=== PATIENT | female | born 1940 | race Caucasian/White ===

== ENCOUNTER → 2017-06-22 | Outpatient (REF) | payer OTHER, MEDICAID ==
[~2017-06-22] MED LIST: /ROPI5TA; /WARF25TA; ACET65TA; GLUC500T; NIAC500C; OXYB10TA; PERC5TAB8; PROZ20CA; VASO10TA; ZOCO20TA
[2017-06-23 14:09] LABS: PERCENT SATURATION 19.4 % (13.2-45.0)
== END ==
LOC: M LAB REF 13:41
PROVIDERS: ATTEND Internal Medicine
DX: D64.9 Anemia, unspecified (principal)

== ENCOUNTER → 2017-07-27 | Outpatient (CLI) | payer OTHER, MEDICAID | LOC: M RAD 11:16 | DX: Z12.31 Encounter for screening mammogram for malignant neoplasm of breast (principal) | CPT/HCPCS: 77067 ==

== ENCOUNTER → 2018-08-15 | Outpatient (CLI) | payer MEDICARE, MEDICAID ==
--- NOTE | 2018-08-15 13:43 | REPMRS ---
Patient History The patient states she has not had a clinical breast exam in over a year. Family history of endometrial cancer in sister. Benign stereotactic core biopsy of the right breast, August 09, 2011. 3D TOMOSYNTHESIS WAS PERFORMED. Digital Mammo Screening Bilat: August 15, 2018 - Exam #: [id number] Bilateral CC and MLO view(s) were taken. Technologist: Alicia Stinson, Technologist Prior study comparison: July 27, 2017, bilateral digital mammo screening bilat performed at [facility]. July 05, 2016, bilateral digital mammo screening bilat performed at [facility]. FINDINGS: There are scattered fibroglandular densities. There has been no change in the appearance of the mammogram from the prior studies. There is a mild amount of residual fibroglandular tissue which is fairly symmetric. There is no interval development of dominant mass, architectural distortion, or clustered microcalcification suggestive of malignancy. Assessment: BI-RADS/ACR category 1 mammogram. Negative Mammogram. Recommendation Routine screening mammogram in 1 year (for women over age 40). This mammogram was interpreted with the aid of an FDA-approved computer-aided dectection system. Electronically Signed By: Zeeshan Deleon MD 08/15/18 [id number]
== END ==
LOC: M RAD 13:01
PROVIDERS: ATTEND Internal Medicine
DX: Z12.31 Encounter for screening mammogram for malignant neoplasm of breast (principal); Z80.49 Family history of malignant neoplasm of other genital organs

== ENCOUNTER 2018-10-20 21:51 | Emergency (ER) | payer MEDICARE, MEDICAID ==
[~2018-10-20] VITALS: Ht 152.4 cm; Wt 81.7 kg
[~2018-10-20 21:51] MED LIST changes: -/ROPI5TA; -/WARF25TA; +COUM1TAB18; +REQU1TAB15
[2018-10-20] MEDS ORDERED: TIMO0.5S29 (22:02)
[2018-10-20] MEDS ORDERED: METF-839 (22:02)
[2018-10-20] MEDS ORDERED: TRAV04OPD (22:02)
[2018-10-20] MEDS ORDERED: ENAL10TA2 (22:02)
[2018-10-20] MEDS ORDERED: FLUO40CA (22:02)
[2018-10-20] MEDS ORDERED: JANU100T (22:02)
[2018-10-20] MEDS ORDERED: OXYB10TA (22:02)
[2018-10-20] MEDS ORDERED: ATOR40TA75 (22:02)
[2018-10-20] MEDS ORDERED: OMEP20CA3 (22:02)
--- NOTE | 2018-10-20 23:46 | REPVR ---
EXAM: CT Head Without Contrast EXAM DATE/TIME: 10/20/2018 11:15 PM CLINICAL HISTORY: 78 years old, female; Injury or trauma; Fall; Initial encounter; Abrasion; Additional info: Fell TECHNIQUE: Imaging protocol: Axial computed tomography images of the head/brain without contrast. Radiation optimization: All CT scans at this facility use at least one of these dose optimization techniques: automated exposure control; mA and/or kV adjustment per patient size (includes targeted exams where dose is matched to clinical indication); or iterative reconstruction. COMPARISON: No relevant prior studies available. FINDINGS: Brain: There is mild parenchymal volume loss. White matter changes are demonstrated in the subcortical, centrum semiovale and periventricular white matter consistent with small vessel white matter angiopathic gliosis. Ventricles: The degree of ventricular dilatation is normal for age. No pathologic enlargement demonstrated. Bones/joints: Left nasal fracture. There is hyperostosis frontalis interna. Sinuses: Visualized sinuses are unremarkable. No acute sinusitis. Mastoid air cells: Visualized mastoid air cells are unremarkable. No mastoid effusion. Soft tissues: Right periorbital hematoma/contusion. Vasculature: Heavily calcified V4 segment right vertebral artery. Calcified intracranial carotid arteries. IMPRESSION: 1. Left nasal fracture. 2. Right periorbital hematoma/contusion. 3. There is mild parenchymal volume loss. White matter changes are demonstrated in the subcortical, centrum semiovale and periventricular white matter consistent with small vessel white matter angiopathic gliosis. Electronically signed by: Khurram Saenz On 10/20/2018 23:46:21 PM
--- NOTE | 2018-10-20 23:49 | REPVR ---
EXAM: CT Maxillofacial Without Contrast EXAM DATE/TIME: 10/20/2018 11:15 PM CLINICAL HISTORY: 78 years old, female; Injury or trauma; Fall; Initial encounter; Bleeding/hemorrhage; Orbit/periorbital; Right; Additional info: Fell TECHNIQUE: Imaging protocol: Axial computed tomography images of the face without intravenous contrast. Coronal and sagittal reformatted images were created and reviewed. Radiation optimization: All CT scans at this facility use at least one of these dose optimization techniques: automated exposure control; mA and/or kV adjustment per patient size (includes targeted exams where dose is matched to clinical indication); or iterative reconstruction. COMPARISON: No relevant prior studies available. FINDINGS: Orbits: No acute intraorbital abnormality. Globes are unremarkable. Sinuses: Air-fluid level in the right maxillary sinus may indicate acute sinusitis. Bones/joints: Possible minimally displaced left nasal fracture. Soft tissues: Right periorbital soft tissue contusion. IMPRESSION: 1. Right periorbital soft tissue contusion. No skull fracture. 2. Possible minimally displaced left nasal fracture. Electronically signed by: Khurram Saenz On 10/20/2018 23:48:54 PM
[2018-10-21 00:15] VITALS: BP 162/80
== END 2018-10-21 00:18 | disposition home or self-care (01) ==
LOC: M ED 21:51
DX: S02.2XXA Fracture of nasal bones, initial encounter for closed fracture (principal); S00.11XA Contusion of right eyelid and periocular area, initial encounter; S00.531A Contusion of lip, initial encounter; W19.XXXA Unspecified fall, initial encounter; Y92.099 Unspecified place in other non-institutional residence as the place of occurrence of the external cause; Y93.89 Activity, other specified; Y99.9 Unspecified external cause status; I10 Essential (primary) hypertension; E78.5 Hyperlipidemia, unspecified; E11.9 Type 2 diabetes mellitus without complications; K21.9 Gastro-esophageal reflux disease without esophagitis; N32.81 Overactive bladder; Z79.84 Long term (current) use of oral hypoglycemic drugs; Z79.899 Other long term (current) drug therapy

== ENCOUNTER → 2019-06-27 | Outpatient (REF) | payer MEDICARE, MEDICAID ==
[~2019-06-27] MED LIST changes: +ATOR40TA75; +ENAL10TA2; +FLUO40CA; +JANU100T; +METF-839; +OMEP-172; +OXYB10TA2; +TIMO0.5S29; +TRAV04OPD
[2019-06-28 13:33] LABS: FOLATE 11.7 NG/ML
== END ==
LOC: M LAB REF 12:35
PROVIDERS: ATTEND Internal Medicine
DX: R41.3 Other amnesia (principal)

== ENCOUNTER → 2019-08-30 | Outpatient (CLI) | payer MEDICAID, MEDICARE ==
[~2019-08-30] MED LIST changes: -OMEP-172; +OMEP1CAP73; -OXYB10TA2; +OXYB10TA23
--- NOTE | 2019-08-30 15:34 | REPMRS ---
Patient History Family history of endometrial cancer in sister. Benign stereotactic core biopsy of the right breast, August 09, 2011. Digital Woman Screen Mammo: August 30, 2019 - Exam #: [id number] Bilateral CC and MLO view(s) were taken. Technologist: Liz Holland, Technologist Prior study comparison: August 15, 2018, bilateral digital mammo screening bilat, performed at [facility]. July 27, 2017, bilateral digital mammo screening bilat, performed at [facility]. July 05, 2016, bilateral digital mammo screening bilat, performed at [facility]. FINDINGS: There are scattered fibroglandular densities. A needle biopsy marker clip is again noted projecting in the upper outer quadrant of the right breast. Vascular calcification is again observed. There has been no change in the appearance of the mammogram from the prior studies. There is a mild amount of scattered fibroglandular density which is fairly symmetric. There is no interval development of dominant mass, architectural distortion, or grouped microcalcification suggestive of malignancy. 3-D tomosynthesis shows no additional findings. Assessment: BI-RADS/ACR category 2 mammogram. Benign Findings. Recommendation Routine screening mammogram of both breasts in 1 year (for women over age 40). This patient's Lifetime Breast Cancer Risk is estimated at 1.7 %. This mammogram was interpreted with the aid of an FDA-approved computer-aided dectection system. Electronically Signed By: Paulo Hoffman MD 08/30/19 [id number]
== END ==
LOC: M WHC 13:56
PROVIDERS: ATTEND Internal Medicine
DX: Z12.31 Encounter for screening mammogram for malignant neoplasm of breast (principal)

== ENCOUNTER → 2021-08-14 | Outpatient (REF) | payer OTHER, MEDICAID, MEDICARE ==
[~2021-08-14] MED LIST changes: +ENAL-36; -ENAL10TA2
[2021-08-14 17:33] LABS: PERCENT SATURATION 18.1 % (13.2-45.0)
== END ==
LOC: M LAB REF 16:28
PROVIDERS: ATTEND Internal Medicine
DX: D64.9 Anemia, unspecified (principal)

== ENCOUNTER → 2022-03-03 | Outpatient (CLI) | payer OTHER, MEDICAID | LOC: M RAD 15:18 | PROVIDERS: ATTEND Internal Medicine | DX: N18.31 Chronic kidney disease, stage 3a (principal) ==

== ENCOUNTER 2022-05-21 14:52 | Emergency (ER) | payer OTHER, MEDICAID ==
[~2022-05-21] VITALS: Ht 162.6 cm; Wt 93.5 kg
[2022-05-21] MEDS ORDERED: MIDAZOLAM INJ 2MG/2ML VIAL (J2250 PER 1MG) IV STA (15:23)
[2022-05-21] MEDS ORDERED: MAGNESIUM SULFATE 1GM/100ML D5W BAG (10MG/ML) As Ordered ONE (15:24)
[2022-05-21] MEDS ORDERED: MIDAZOLAM INJ 2MG/2ML VIAL (J2250 PER 1MG) As Ordered ONE (15:24)
[2022-05-21 15:32] LABS: ABG BASE EXCESS -17.4 (-2.0-2.0); ABG HCO3 11.9 MEQ/L (22.0-26.0); ABG PARTIAL PRESSURE CO2 42.3 mmHg (35.0-45.0); ABG PARTIAL PRESSURE O2 108.9 mmHg (75.0-100.0); ABG STANDARD HCO3 11.2 MEQ/L (22.0-26.0); ABG TOTAL CO2 13.2 MEQ/L (23.0-31.0); ABG pH (ARTERIAL) 7.068 UNITS (7.350-7.450)
[2022-05-21 15:36] LABS: HEMATOCRIT 36.2 % (36.0-47.0); HEMOGLOBIN 9.8 g/dl (12.0-15.5); MEAN CORPUSCULAR HEMOGLOBIN 26.5 pg (27.0-33.0); MEAN CORPUSCULAR HGB CONC 27.1 g/dl (32.0-36.5); MEAN CORPUSCULAR VOLUME 97.8 fl (80.0-96.0); PLATELET COUNT, AUTOMATED 247 10^3/uL (150-450); WHITE BLOOD COUNT 6.5 10^3/uL (4.0-10.0)
[2022-05-21 15:47] LABS: INR 1.58; PROTHROMBIN TIME 19.1 SECONDS (12.5-14.5)
[2022-05-21 15:48] LABS: PARTIAL THROMBOPLASTIN TIME 21.1 SECONDS (24.8-34.2)
[2022-05-21 15:53] VITALS: BP 126/96
[2022-05-21 16:01] LABS: ERYTHROCYTE SEDIMENTATION RATE 65 mm/hr (0-30)
[2022-05-21 16:06] LABS: ANISOCYTOSIS 1+; ATYPICAL LYMPH 6 % (0-5); BASOPHILS 1 % (0-1); HYPOCHROMASIA 1+; LYMPHOCYTES 46 % (16-44); METAMYELOCYTES 1 % (0-0); MONOCYTES 1 % (0-5); MYELOCYTES 2 % (0-0); NEUTROPHILS 36 % (28-66); PLATELET CLUMPS SMALL AMT; PLATELET ESTIMATE NORMAL (NORMAL)
[2022-05-21 16:13] LABS: RSV AMPLIFICATION NEGATIVE (NEGATIVE)
[2022-05-21] MEDS ORDERED: INSULIN REGULAR IN 0.9 % NACL 100 UNIT in IV 1 EA IV SCH ×2 (16:15)
[2022-05-21] MEDS ORDERED: PIPERACILLIN/TAZOBACTAM SOD 3.375 GM in D5W MINI-BAG PLUS 50 ML IV ONE (16:15)
[2022-05-21] MEDS ORDERED: INSULIN IV RATE CHANGE DOCUMENTATION ML/HR XX SCH (16:15)
[2022-05-21 16:18] LABS: DOHLE BODIES 1+
[2022-05-21] MEDS ORDERED: VASOPRESSIN INJ 20 UNITS/ML VIAL As Ordered ONE (16:27)
[2022-05-21 16:28] LABS: CK-MB VALUE MASS 10.5 NG/ML (<3.6); MB/CK RELATIVE INDEX 5.05 (< OR =4)
[2022-05-21 16:39] LABS: ALBUMIN 1.7 GM/DL (3.2-5.2); BILIRUBIN,DIRECT 0.1 MG/DL (0.0-0.2); BILIRUBIN,TOTAL 0.2 MG/DL (0.2-1.0); C REACTIVE PROTEIN QUANTITATIV 19.9 MG/DL (0.00-0.30); CALCIUM LEVEL 12.9 MG/DL (8.8-10.2); CREATININE FOR GFR 4.65 MG/DL (0.55-1.30); FREE T4 0.91 NG/DL (0.76-1.46); GLOMERULAR FILTRATION RATE 9.6 (>32); MAGNESIUM LEVEL 2.9 MG/DL (1.8-2.4); POTASSIUM SERUM 4.3 MEQ/L (3.5-5.1); THYROID STIMULATING HORMONE 2.06 uIU/ML (0.358-3.740); TOTAL PROTEIN 4.9 GM/DL (6.4-8.2)
[2022-05-21] MEDS ORDERED: EPINEPHrine 1MG/10ML SYRINGE 1.5IN IV STA ×3 (16:45)
[2022-05-21] MEDS ORDERED: SODIUM BICARBONATE 8.4% INJ 50 ML SYRINGE IV STA ×2 (16:45)
[2022-05-21] MEDS ORDERED: NS 3,000 ML IV ONE (16:45)
[2022-05-21] MEDS ORDERED: CALCIUM CHLORIDE 10% 1 GM in D5W 100 ML IV ONE (16:45)
[2022-05-21] MEDS ORDERED: VASOPRESSIN INJ 20 UNITS in NS 500 ML IV STA (16:45)
[2022-05-21] MEDS ORDERED: DOPamine HCL 400 MG in IV 1 EA IV SCH (16:45)
[2022-05-21] MEDS ORDERED: NOREPINEPHRINE 4MG IN D5 250ML 4 MG in IV 1 EA IV SCH ×2 (17:00)
== END 2022-05-21 20:28 | disposition expired ==
LOC: EDSEX 14:52 → M ED 14:52 → EDBD 14:52 → M ED 20:28
DX: I46.9 Cardiac arrest, cause unspecified (principal); I21.3 ST elevation (STEMI) myocardial infarction of unspecified site; E11.9 Type 2 diabetes mellitus without complications; I10 Essential (primary) hypertension; F32.A Depression, unspecified
CPT/HCPCS: 70450; 71045; 71250; 72125; 74176; 80047; 80048; 80076; 82550; 82553; 82803; 83690; 83735; 83880; 84439; 84443; 84484; 85025; 85610; 85652; 85730; 86140; 87631; 92950; 93005; 93041; 94760; 96365; 96367; 96374; 96375; 99291; 99292; J0171; J1265; J2250